=== PATIENT | female | born 1965 | race Caucasian/White ===

== ENCOUNTER 2023-03-25 08:10 | Inpatient (IN) | payer OTHER ==
[2023-03-25] MEDS ORDERED: Albuterol/Ipratropium 3.0-0.5 MG/3 ML Neb Soln ONE ×2 (08:16→15:30)
[2023-03-25] MEDS ORDERED: Albuterol/Ipratropium 3.0-0.5 MG/3 ML Neb Soln NEB ONE ×4 (08:19→15:34)
[2023-03-25] MEDS ORDERED: methylPREDNISolone Sodium Succinate 125 MG/2 ML SDV IVPUSH ONE ×2 (08:19→20:00)
[2023-03-25] MEDS: Sodium Chloride 0.9% 10 ML Syringe FLUSH PRN ×6 (08:27→19:50)
[2023-03-25] MEDS: Albuterol 0.083% 2.5 MG/3 ML Neb Soln NEB PRN ×3 (08:35→16:28)
[2023-03-25 08:41] LABS: BASOPHILS PERCENT AUTO 0.4 % (0.2-1.5); EOSINOPHILS ABSOLUTE AUTO 0.1 x10-3/uL (0.0-0.8); EOSINOPHILS PERCENT AUTO 0.5 % (0.6-8.1); HEMATOCRIT 38.5 % (34.2-48.2); HEMOGLOBIN 12.9 g/dL (11.4-15.5); LYMPHOCYTES ABSOLUTE AUTO 2.2 x10-3/uL (1.0-4.4); LYMPHOCYTES PERCENT AUTO 17.2 % (18.4-52.1); MEAN CORPUSCULAR HEMOGLOBIN 30.2 pg (23.9-33.9); MEAN CORPUSCULAR HGB CONC 33.4 g/dL (31.9-34.8); MEAN CORPUSCULAR VOLUME 90.4 fL (76.7-100.5); MEAN PLATELET VOLUME 7.8 fL (7.1-12.4); MONOCYTES ABSOLUTE AUTO 0.7 x10-3/uL (0.3-1.0); MONOCYTES PERCENT AUTO 5.6 % (4.4-15.7); NEUTROPHILS PERCENT AUTO 76.3 % (30.8-76.2); PLATELET COUNT,PLT 405 x10(3)uL (151-488); RED BLOOD CELL COUNT 4.26 x10(6)uL (3.60-5.20); RED CELL DISTRIBUTION WIDTH 13.8 % (12.3-16.5); WHITE BLOOD CELL COUNT,WBC 13.1 x10-3/uL (3.0-10.3)
[2023-03-25 08:42] LABS: BLOOD UREA NITROGEN,BUN 16 mg/dL (7-18); BUN/CREATININE RATIO 17.8 (9-20); CALCIUM 9.1 mg/dL (8.6-10.2); CARBON DIOXIDE,CO2 32 mmol/L (21-32); CHLORIDE,CL 106 mmol/L (100-110); CREATININE 0.9 mg/dL (0.55-1.02); ESTIMATED GFR 75 mL/min (>60); GLUCOSE RANDOM 106 mg/dL (80-116); POTASSIUM,K 3.7 mmol/L (3.5-5.3); SODIUM,NA 142 mmol/L (135-145)
[2023-03-25 08:48] LABS: A/G RATIO 0.9; ALANINE AMINOTRANSFERASE,ALT 23 U/L (12-36); ALBUMIN 3.4 g/dL (3.5-5.2); ALKALINE PHOSPHATASE 146 IU/L (56-112); ASPARTATE AMNIOTRANSFERASE,AST 9 IU/L (5-25); BILIRUBIN TOTAL 0.3 mg/dL (0.1-1.3); PROTEIN TOTAL,TP 7.2 g/dL (6.0-8.0)
[2023-03-25 08:50] LABS: BASE EXCESS VENOUS,POC 0 mmol/L (-2 - 3+); PCO2 VENOUS,POC 42 mmHg (41-51); PH VENOUS,POC 7.39 pH Units (7.32-7.43)
[2023-03-25 08:55] LABS: TROPONIN I 50.4 pg/mL (4.0-60.3)
[2023-03-25] MEDS ORDERED: Morphine 4 MG/ML VIAL IVPUSH ONE (09:04)
[2023-03-25] MEDS ORDERED: Naloxone 0.4 MG/ML SDV IVPUSH PRN (09:04)
[2023-03-25] MEDS ORDERED: LORazepam 2 MG/ML SDV IVPUSH ONE (09:16)
[2023-03-25] MEDS ORDERED: LORazepam 2 MG/ML SDV ONE (09:18)
[2023-03-25] MEDS ORDERED: Albuterol 0.5% 5 MG/ML Neb Soln 20 ML Bottle NEB SCH (09:30)
[2023-03-25] MEDS ORDERED: Albuterol 0.083% 2.5 MG/3 ML Neb Soln ONE ×4 (09:32→16:25)
[2023-03-25] MEDS ORDERED: Albuterol 0.5% 5 MG/ML Neb Soln 20 ML Bottle NEB PRN (09:35)
[2023-03-25] MEDS ORDERED: Sodium Chloride 0.9% 1,000 ML IV SCH (10:00)
[2023-03-25 10:15] LABS: INR 0.88 (1.00-1.24); PROTHROMBIN TIME 9.1 sec (9.0-11.1)
[2023-03-25 10:44] LABS: INFLUENZA A NAA NEGATIVE (NEGATIVE); INFLUENZA B NAA NEGATIVE (NEGATIVE); RESPIRATORY SYNCYTIAL VIR NAA NEGATIVE (NEGATIVE)
[2023-03-25 10:46] LABS: CORONAVIRUS COVID-19 NAA NEGATIVE (NEGATIVE)
[2023-03-25] MEDS ORDERED: Magnesium Sulfate/Water 2 GM in Premix Bag 1 BAG IV ONE (16:09)
[2023-03-25] MEDS ORDERED: Albuterol 0.5% 5 MG/ML Neb Soln 20 ML Bottle NEB ONE (16:17)
[2023-03-25] MEDS ORDERED: Albuterol 0.083% 2.5 MG/3 ML Neb Soln NEB SCH (16:30)
[2023-03-25] MEDS ORDERED: Acetaminophen 325 MG Tab PO PRN (16:59)
[2023-03-25] MEDS ORDERED: LORazepam 2 MG/ML SDV IV PRN (16:59)
[2023-03-25] MEDS ORDERED: Ketorolac 30 MG/ML SDV IVPUSH PRN (16:59)
[2023-03-25] MEDS ORDERED: Ondansetron 4 MG/2 ML SDV IV PRN (16:59)
[2023-03-25] MEDS ORDERED: Enoxaparin 40 MG/0.4 ML Syringe SUBCUT SCH (17:00)
[2023-03-25 17:07] LABS: BASE EXCESS ARTERIAL,POC -4 mmol/L (-2 - 3+); HCO3 ARTERIAL,POC 23 mmol/L (21-28); O2 SATURATION ARTERIAL,POC 67.3 % (94-98); PO2 ARTERIAL,POC 39 mmHg (83-108)
[2023-03-25] MEDS ORDERED: Azithromycin 500 MG in Sodium Chloride 0.9% 250 ML IV ONE (17:45)
[2023-03-25 17:48] LABS: BASE EXCESS ARTERIAL,POC -4 mmol/L (-2 - 3+); HCO3 ARTERIAL,POC 21 mmol/L (21-28); PO2 ARTERIAL,POC 68 mmHg (83-108)
[2023-03-25] MEDS ORDERED: ALPRAZolam 1 MG Tab PO STA (19:38)
[2023-03-25] MEDS ORDERED: Formoterol/Mometasone 200-5 MCG 8.8 GM Inhaler IH SCH (21:00)
[2023-03-26] MEDS: Albuterol 0.083% 2.5 MG/3 ML Neb Soln NEB PRN (00:36)
[2023-03-26] MEDS: Sodium Chloride 0.9% 10 ML Syringe FLUSH PRN ×4 (00:55→05:16)
[2023-03-26] MEDS ORDERED: Budesonide 0.5 MG/2 ML Neb Susp NEB STA (01:46)
[2023-03-26] MEDS ORDERED: Magnesium Sulfate/Water 2 GM in Premix Bag 1 BAG IV ONE (01:47)
[2023-03-26] MEDS ORDERED: Iopamidol 755 Mg/ML 100 ML Bottle IV SCH (03:00)
[2023-03-26] MEDS ORDERED: cefTRIAXone 2 GM Vial IVPUSH ONE (04:48)
[2023-03-26] MEDS ORDERED: LORazepam 2 MG/ML SDV IVPUSH ONE (04:50)
[2023-03-26] MEDS ORDERED: methylPREDNISolone Sodium Succinate 125 MG/2 ML SDV IVPUSH SCH (09:00)
[2023-03-26] MEDS ORDERED: Nicotine 14 MG/24 Hr Patch TRDERM SCH (09:00)
== END 2023-03-26 05:16 | DRG 189 ==
LOC: FB.ED 08:10 → FB.MS 15:11
PROVIDERS: ADMIT Family Medicine; ATTEND Family Medicine
DX: J96.01 Acute respiratory failure with hypoxia (principal); J45.901 Unspecified asthma with (acute) exacerbation; F17.210 Nicotine dependence, cigarettes, uncomplicated; I10 Essential (primary) hypertension; F41.9 Anxiety disorder, unspecified; E03.9 Hypothyroidism, unspecified; Z87.01 Personal history of pneumonia (recurrent); Z79.890 Hormone replacement therapy; Z11.52 Encounter for screening for COVID-19; Z79.899 Other long term (current) drug therapy
CPT/HCPCS: 0241U; 36415; 71045; 71275; 80053; 82803; 83605; 83880; 84484; 85025; 85379; 85610; 85730; 86140; 87040; 93005; 93010; 94640; 96361; 96374; 96375; 99223; 99239; 99285; 99285-25; A9270-GY; J0456; J0696; J1650; J1885; J2060; J2270; J2930; J3475; J3490; J7030; J7050; J7620; Q9967